=== PATIENT | male | born 1950 | race Caucasian/White ===

== ENCOUNTER 2020-02-01 13:20 | Emergency (ER) | payer MEDICARE, SELFPAY ==
[~2020-02-01] VITALS: Ht 170.2 cm; Wt 86.2 kg
[2020-02-01 13:20] VITALS: BP 103/67
--- NOTE | 2020-02-01 13:23 | NUR ---
BIBA TAKEN TO BED 9
[2020-02-01] MEDS ORDERED: ACETAMINOPHEN EXTRA STRENGTH 500 MG TAB ONE (13:38)
[2020-02-01] MEDS ORDERED: ACETAMINOPHEN EXTRA STRENGTH 500 MG TAB PO ONE (13:40)
--- NOTE | 2020-02-01 13:43 | NUR ---
PO MEDS GIVEN-NADR AT THIS TIME
--- NOTE | 2020-02-01 13:45 | NUR ---
69N YO MALE BIBA W C/O FEVER/CHILLS AFTER ROOT CANAL AT [facility] TODAY. TEMP AT THIS TIME 102.5. PER EMS, BP WAS 290/140 IN THE FIELD. BP 103/67 AT THIS TIME. PT DENIES SOB/COUGH. HX: DM, HIGH CHOLESTEROL
[2020-02-01] MEDS ORDERED: NACL 0.9% 1,000 ML IV ONE (14:11)
[2020-02-01] MEDS ORDERED: CLINDAMYCIN 600 MG in DEXTROSE 5% 50 ML IV ONE (14:15)
[2020-02-01] MEDS ORDERED: CLINDAMYCIN 600 MG/4 ML VIAL ONE (14:39)
[2020-02-01 14:48] LABS: EOSINOPHILS % (AUTO) 0.1 % (0.0-4.0); HEMATOCRIT 39.3 % (36-52); HEMOGLOBIN 13.5 g/dL (12.0-18.0); LYMPHOCYTES # (AUTO) 0.5 K/uL (2.0-11.5); MEAN CORPUSCULAR HEMOGLOBIN 30 pg (27-31); MEAN CORPUSCULAR HGB CONC 34 g/dL (33-37); MEAN CORPUSCULAR VOLUME 87.2 fL (80-94); MONOCYTES # (AUTO) 0.1 K/uL (0.8-1.0); MONOCYTES % (AUTO) 2.3 % (1.7-9.3); NEUTROPHILS # (AUTO) 5.8 K/uL (1.8-7.7); NEUTROPHILS % (AUTO) 89.6 % (42.2-75.2); PLATELET COUNT (AUTO) 110 K/uL (140-450); RED BLOOD CELL COUNT(AUTO) 4.51 MIL/uL (4.20-6.10); RED CELL DISTRIBUTION WIDTH 12.7 % (11.6-13.7); WHITE BLOOD COUNT (AUTO) 6.5 K/uL (4.8-10.8)
--- NOTE | 2020-02-01 14:48 | NUR ---
xray at bedside
[2020-02-01 15:06] LABS: ALBUMIN 3.4 g/dL (3.4-5.0); ANION GAP 12.9 (8-16); ASPARTATE AMINOTRANSFERASE 25 U/L (15-37); CARBON DIOXIDE 25.7 mmol/L (21-32); CHLORIDE 99 mmol/L (98-107); CREATININE 1.3 mg/dL (0.6-1.3); GLUCOSE 126 mg/dL (74-106); POTASSIUM 3.6 mmol/L (3.5-5.1); SODIUM SERUM 134 mmol/L (136-145); TOTAL BILIRUBIN 1.5 mg/dL (0.0-1.0); UREA NITROGEN, BLOOD 13 mg/dL (7-18)
[2020-02-01 16:00] VITALS: BP 110/72
--- NOTE | 2020-02-01 16:01 | NUR ---
Patient discharged with v/s stable. Written and verbal after care instructions given and explained. Patient alert, oriented and verbalized understanding of instructions. Ambulatory with steady gait. All questions addressed prior to discharge. ID band removed. Patient advised to follow up with PMD. Rx of CLINDAMYCIN AND TYLENOL given. Patient educated on indication of medication including possible reaction and side effects. Opportunity to ask questions provided and answered. PT SIGNED AMA
--- NOTE | 2020-02-01 16:01 | NUR ---
Patient does not wish to proceed with medical care recommended by DR DAVILA. Patient given information related to possible complications, up to and including , which could occur as a result of leaving hospital at this time. Patient verbalizes understanding of risks involved leaving against medical advice. Patient has signed AMA form.
[2020-02-01 20:39] LABS: APPEARANCE,URINE CLEAR (CLEAR); BILIRUBIN,URINE NEGATIVE (NEGATIVE); BLOOD, URINE NEGATIVE (NEGATIVE); COLOR,URINE AMBER (YELLOW); LEUKOCYTE ESTERASE ,URINE NEGATIVE (NEGATIVE); NITRITE, URINE NEGATIVE (NEGATIVE); UGLUCOSE NEGATIVE (NEGATIVE)
[2020-02-01 21:39] LABS: RBC,URINE 0-5 /HPF (0-5); WBC,URINE 0-5 /HPF (0-5)
[2020-02-01 21:40] LABS: HYALINE CASTS, URINE 0-10 /LPF (None Seen)
--- NOTE | 2020-02-10 08:05 | NUR ---
LATE ENTRY- NORMAL SALINE 0.9% IV FLUIDS DISCONTINUED AT 1601. CLINDAMYCIN IV DISCONTINUED AT 1601.
--- NOTE | 2020-02-10 12:12 | NUR ---
LATE ENTRY- CLINDAMYCIN IV FLUIDS DISCONTINUED AT 0802.
== END 2020-02-01 16:01 | disposition home or self-care (01) ==
LOC: MED 13:20
DX: K04.7 Periapical abscess without sinus (principal); R50.9 Fever, unspecified; I10 Essential (primary) hypertension; Z98.890 Other specified postprocedural states
CPT/HCPCS: 36415; 71045; 80053; 81001; 83605; 85025; 87040; 87086; 96365; 99284; J3490; J7030; Q0092